=== PATIENT | male | born 1985 | race Caucasian/White ===

== ENCOUNTER 2018-03-10 22:46 | Emergency (ER) | payer SELFPAY ==
[2018-03-10 23:04] VITALS: TEMP 98.5; O2SAT 100; BMI 19.5
[2018-03-10] MEDS ORDERED: Alum-Mag Hydrox-Simethicone Susp (30 mL) PO STA (23:53)
[2018-03-10] MEDS ORDERED: Atrop/Hyosc/Scopal/PB Elixir (120 ml) PO STA (23:54)
[2018-03-10] MEDS ORDERED: Sodium Chloride 0.9% 1,000 ML IV STA (23:54)
--- NOTE | 2018-03-10 23:55 | ED PDOC ---
Arrival/HPI - General Chief Complaint: ENT Problem Time Seen by Provider: 03/10/18 23:11 Historian: Patient - History of Present Illness Narrative History of Present Illness (Text): 03/10/18 23:52 This 32 yo male with pmh IDDM, presents to this ED c/o dysphagia, and burning pain when he drinks or swallow x 2 days. Time/Duration: Other (see hpi) Context: Home Past Medical History - Provider Review Nursing Documentation Reviewed: Yes - Infectious Disease Hx of Infectious Diseases: None - Endocrine/Metabolic Hx Diabetes Mellitus Type 1: Yes - Psychiatric Hx Substance Use: No - Anesthesia Hx Anesthesia: No Family/Social History - Physician Review Nursing Documentation Reviewed: Yes Family/Social History: Other (noncontributory) Smoking Status: Heavy Smoker > 10 Cigarettes Daily Hx Alcohol Use: No Hx Substance Use: No Allergies/Home Meds Allergies/Adverse Reactions: Allergies No Known Allergies Allergy (Verified 03/10/18 23:12) Review of Systems - Review of Systems Constitutional: Normal. absent: Fatigue, Weight Change, Fevers Eyes: Normal ENT: Other (see hpi) Respiratory: Normal Cardiovascular: Normal Gastrointestinal: Nausea, Vomiting, Other (see hpi). absent: Abdominal Pain, Constipation, Diarrhea, Appetite Changes, Hematochezia, Hematemesis, Anorexia, Food Intolerance Genitourinary Male: Normal. absent: Dysuria, Frequency, Hematuria Musculoskeletal: Normal Skin: Normal Neurological: Normal Endocrine: Normal Hemo/Lymphatic: Normal Psychiatric: Normal Physical Exam Vital Signs Temp Pulse Resp BP Pulse Ox 03/10/18 23:03 98.5 F 94 H 20 114/89 100 Temperature: Afebrile Blood Pressure: Normal Pulse: Regular Respiratory Rate: Normal Appearance: Positive for: Well-Appearing, Non-Toxic, Comfortable Pain Distress: None Mental Status: Positive for: Alert and Oriented X 3 Finger Stick Blood Glucose: 374 - Systems Exam Head: Present: Atraumatic, Normocephalic Pupils: Present: PERRL Extroacular Muscles: Present: EOMI Conjunctiva: Present: Normal Mouth: Present: Moist Mucous Membranes Neck: Present: Normal Range of Motion, Trachea Midline. No: Meningeal Signs, MIDLINE TENDERNESS, Paraspinal Tenderness, Lymphadenopathy Respiratory/Chest: Present: Clear to Auscultation, Good Air Exchange. No: Respiratory Distress, Accessory Muscle Use, Wheezes, Retracting, Rhonchi Cardiovascular: Present: Regular Rate and Rhythm, Normal S1, S2. No: Murmurs Abdomen: No: Tenderness, Distention, Peritoneal Signs, Rebound, Guarding Back: Present: Normal Inspection. No: CVA Tenderness Upper Extremity: Present: Normal Inspection, Normal ROM. No: Cyanosis, Edema Lower Extremity: Present: Normal Inspection, Normal ROM. No: Edema Neurological: Present: GCS=15, CN II-XII Intact, Speech Normal Skin: Present: Warm, Dry, Normal Color. No: Rashes Psychiatric: Present: Alert, Oriented x 3, Normal Insight, Normal Concentration Medical Decision Making ED Course and Treatment: 03/11/18 02:20 Re-evaluation. Patient feels better. Discussed results and plan with patient who expresses understanding. All questions answered and there is agreement with the plan to discharge home with instructions. Patient stable for discharge. Return if symptoms persist or worsen. Re-evaluation Time: 02:20 Reassessment Condition: Re-examined, Improved - Lab Interpretations Lab Results: 03/11/18 00:12 03/11/18 00:12 Lab Results 03/11/18 00:12: Sodium 136, Potassium 4.3, Chloride 97 L, Carbon Dioxide 28, Anion Gap 15, BUN 15, Creatinine 0.8, Est GFR ( Amer) > 60, Est GFR (Non- Af Amer) > 60, Random Glucose 406 H*, Calcium 9.9, Total Bilirubin 0.6, AST 18, ALT 29, Alkaline Phosphatase 89, Total Protein 7.5, Albumin 4.4, Globulin 3.1, Albumin/Globulin Ratio 1.4 03/11/18 00:12: WBC 8.3, RBC 5.54, Hgb 14.5, Hct 42.5, MCV 76.7 L, MCH 26.2, MCHC 34.1, RDW 13.1, Plt Count 258, MPV 9.2, Gran % 61.0, Lymph % (Auto) 27.4, [place] % (Auto) 8.2 H, Eos % (Auto) 3.0, Baso % (Auto) 0.4, Gran # 5.05, Lymph # ( Auto) 2.3, [place] # (Auto) 0.7 H, Eos # (Auto) 0.3, Baso # (Auto) 0.03 03/10/18 23:01: POC Glucose (mg/dL) 374 H I have reviewed the lab results: Yes Interpretation: Abnormal lab values - RAD Interpretation Narrative RAD Interpretations (Text): 03/11/18 02:19 FINDINGS: Lungs: Normal. No consolidation. No masses. Pleural space: Normal. No pneumothorax. No pleural effusion. Heart: Normal. No cardiomegaly. No pericardial effusion. Mediastinum: Mild-moderate 7-8 mm wall thickening of the proximal - mid esophagus. Aorta: Normal. No aortic aneurysm. Lymph nodes: Unremarkable. No enlarged lymph nodes. Bones/joints: Unremarkable. No acute fracture. Soft tissues: Unremarkable. Intraperitoneal space: No evidence of focal air space disease. IMPRESSION: 1. Mild-moderate 7-8 mm wall thickening of the proximal - mid esophagus. -- Findings suspicious for esophagitis. 2. No evidence of focal air space disease. Radiology Orders: 03/10/18 23:52 CHEST W/O CONTRAST [CT] Stat - Medication Orders Current Medication Orders: Discontinued Medications Al Hydrox/Mg Hydrox/Simethicone (Maalox Plus 30 Ml) 30 ml PO STAT STA Stop: 03/10/18 23:54 Last Admin: 03/11/18 00:31 Dose: 30 ml Belladonna/Phenobarbital ( Elixir) 5 ml PO STAT STA Stop: 03/10/18 23:55 Last Admin: 03/11/18 00:32 Dose: 5 ml Sodium Chloride (Sodium Chloride 0.9%) 1,000 mls @ 999 mls/hr IV .Q1H1M STA Stop: 03/11/18 00:54 Last Admin: 03/11/18 00:32 Dose: 999 mls/hr eMAR Start Stop Document 03/11/18 00:32 IT (Rec: 03/11/18 00:32 IT [id number]) Intravenous Solution Start Date 03/11/18 Start Time 00:32 Lidocaine HCl (Lidocaine 2% Viscous) 5 ml PO STAT STA Stop: 03/10/18 23:55 Last Admin: 03/11/18 00:32 Dose: 5 ml Ondansetron HCl (Zofran Inj) 4 mg IVP STAT STA Stop: 03/10/18 23:54 Last Admin: 03/11/18 00:31 Dose: 4 mg IVP Administration Document 03/11/18 00:31 IT (Rec: 03/11/18 00:31 IT [id number]) Charges for Administration # of IVP Administrations 1 Pantoprazole Sodium (Protonix Inj) 40 mg IVP STAT STA Stop: 03/10/18 23:54 Last Admin: 03/11/18 00:31 Dose: 40 mg IVP Administration Document 03/11/18 00:31 IT (Rec: 03/11/18 00:31 IT [id number]) Charges for Administration # of IVP Administrations 1 Disposition/Present on Arrival - Present on Arrival Any Indicators Present on Arrival: No History of DVT/PE: No History of Uncontrolled Diabetes: No Urinary Catheter: No History of Decub. Ulcer: No History Surgical Site Infection Following: None - Disposition Have Diagnosis and Disposition been Completed?: Yes Diagnosis: Esophagitis, Uncontrolled diabetes mellitus Disposition: HOME/ ROUTINE Disposition Time: 02:21 Patient Plan: Discharge Patient Problems: Current Active Problems Problem Status Onset Esophagitis Acute Uncontrolled diabetes mellitus Acute Condition: GOOD Discharge Instructions (ExitCare): Diabetes and Diet, Should I Switch to an Insulin Pump?, Acid Reflux (Gastroesophageal Reflux Disease), Adult (DC) Additional Instructions: Call Dr. Su , manager power for follow up visit, and possible endoscopy. Make sure to be complaint to diabetes medication. return to emergency if symptoms worsen. Prescriptions: Famotidine [Pepcid] 40 mg PO DAILY #30 tablet Sucralfate [Carafate] 1 gm PO DAILY #30 tab Referrals: Moy Su MD [Staff Provider] - Follow up with primary [facility] [Outside] - Follow up with primary [facility] [Outside] - Follow up with primary Forms: [employer] ([place]), WORK NOTE
[2018-03-11 00:27] LABS: BASO # 0.03 K/mm3 (0.0-2.0); BASO % 0.4 % (0.0-3.0); EOS # 0.3 (0.0-0.7); GRAN # 5.05 (1.4-6.5); HEMOGLOBIN 14.5 g/dL (14.0-18.0); LYMPH # 2.3 (1.2-3.4); LYMPH % 27.4 % (22.0-35.0); MEAN CELL VOLUME 76.7 fl (80.0-105.0); MEAN CORPUSCULAR HEMOGLOBIN 26.2 pg (25.0-35.0); MEAN CORPUSCULAR HGB CONC 34.1 g/dl (31.0-37.0); MEAN PLATELET VOLUME 9.2 fl (7.0-11.0); MONO # 0.7 (0.1-0.6); MONO % 8.2 % (1.0-6.0); RBC 5.54 10^6/uL (3.5-6.1); RED CELL DISTRIBUTION WIDTH 13.1 % (11.5-14.5); WHITE BLOOD COUNT 8.3 10^3/ul (4.5-11.0)
[2018-03-11 00:38] LABS: ALB/GLOB RATIO 1.4 (1.1-1.8); ALBUMIN 4.4 g/dL (3.0-4.8); ALT/SGPT 29 U/L (7-56); AST/SGOT 18 U/L (17-59); BLOOD UREA NITROGEN 15 mg/dL (7-21); CALCIUM 9.9 mg/dL (8.4-10.5); GFR AFRICAN-AMERICAN > 60; GFR NON-AFRICAN AMERICAN > 60
[2018-03-11] MEDS ORDERED: Insulin Regular 1 UNITS/0.01 ML ML IVP STA (00:56)
[2018-03-11] MEDS ORDERED: Acetaminophen 650mg/20.3ml solution UD PO STA (02:28)
[2018-03-11 02:34] VITALS: BP 120/82; PULSE 72; RESP 17
--- NOTE | 2018-03-11 09:39 | CT ---
PROCEDURE: CT Chest without contrast HISTORY: dysphagia COMPARISON: None. TECHNIQUE: Contiguous axial images were obtained through the chest without intravenous contrast enhancement. Sagittal and coronal reconstructions were performed. Radiation dose (DLP): 197 mGy-cm. This CT exam was performed using one or more of the following dose reduction techniques: Automated exposure control, adjustment of the mA and/or kV according to patient size, and/or use of iterative reconstruction technique. FINDINGS: LUNGS: Clear lungs. Visualized airway clear. MEDIASTINUM: Unremarkable thoracic aorta. No aneurysm. Normal sized heart. Main pulmonary artery unremarkable. No vascular congestion. No lymphadenopathy. Nonspecific esophageal wall thickening proximally. PLEURA: No pleural fluid. No pneumothorax. BONES: No fracture. No destructive lesion. UPPER ABDOMEN: Grossly unremarkable. OTHER FINDINGS: None. IMPRESSION: Nonspecific esophageal wall thickening proximally. Correlate for esophagitis.
== END 2018-03-11 02:33 | disposition home or self-care (01) ==
LOC: ED 22:46
DX: K20.9 Esophagitis, unspecified (principal); E11.9 Type 2 diabetes mellitus without complications; Z79.4 Long term (current) use of insulin
CPT/HCPCS: 71250; 80053; 82948; 85025; 96374; 96375; 99283; C9113; J2405; J7030